=== PATIENT | female | born 1955 | race Caucasian/White ===

== ENCOUNTER 2020-02-01 15:03 | Inpatient (IN) | payer OTHER, SELFPAY ==
[~2020-02-01] VITALS: Ht 157.5 cm; Wt 49.9 kg
[2020-02-01 15:17] VITALS: BP_SYST 146
--- NOTE | 2020-02-01 15:40 | NUR ---
Patient to ER bed 7 to gown for evaluation. Side rails up.
--- NOTE | 2020-02-01 15:45 | NUR ---
Pt bib EMS from [facility] with c/o constipation. Reports no BM x6 days. H/o cancer and chronic pain. V/S stable, pt is afebrile. Currently resting in bed, will continue to monitor.
[2020-02-01] MEDS ORDERED: KETOROLAC TROMETHAMINE 30 MG VIAL IVP ONE (16:15)
--- NOTE | 2020-02-01 16:15 | NUR ---
ER Dr. Wright at bedside examining patient.
--- NOTE | 2020-02-01 16:20 | NUR ---
# 20 gauge angiocath placed to RFA. Use of asceptic technique. Opsite placed over site. Blood return noted. Blood for lab drawn from site. Flushed with 10 cc of normal saline. No evidence of infiltration noted. Patient tolerated well.
[2020-02-01] MEDS ORDERED: KETAMINE 30 MG/3 ML SYRINGE IVP ONE (16:45)
[2020-02-01] MEDS ORDERED: MORPHINE 4 MG/ML INJ. SYRINGE IVP ONE (16:45)
[2020-02-01] MEDS ORDERED: KETOROLAC TROMETHAMINE 30 MG VIAL ONE (16:48)
--- NOTE | 2020-02-01 16:50 | NUR ---
Patient transported to radiology via gurney, accompanied by staff.
[2020-02-01 17:24] LABS: BASOPHILS # (AUTO) 0.1 K/uL (0.0-0.2); BASOPHILS % (AUTO) 0.9 % (0.0-2.0); EOSINOPHILS % (AUTO) 0.3 % (0.0-4.0); HEMATOCRIT 31.5 % (36-48); HEMOGLOBIN 10.4 g/dL (12.0-16.0); LYMPHOCYTES # (AUTO) 1.2 K/uL (1.0-5.5); MEAN CORPUSCULAR HEMOGLOBIN 31 pg (27-31); MEAN CORPUSCULAR HGB CONC 33 % (32-36); MEAN CORPUSCULAR VOLUME 92 fL (79.0-98.0); MONOCYTES # (AUTO) 0.4 K/uL (0.0-1.0); NEUTROPHILS # (AUTO) 6.8 K/uL (1.8-7.7); NEUTROPHILS % (AUTO) 79.8 % (40.0-70.0); PLATELET COUNT (AUTO) 304 K/uL (130-430); RED BLOOD CELL COUNT(AUTO) 3.42 MIL/uL (4.2-6.2); RED CELL DISTRIBUTION WIDTH 17.1 % (9.0-15.0); WHITE BLOOD COUNT (AUTO) 8.6 K/uL (4.8-10.8)
[2020-02-01 17:40] LABS: CALCIUM 11.1 mg/dL (8.4-11.0); CREATININE 0.64 mg/dL (0.55-1.30); POTASSIUM 3.6 mmol/L (3.5-5.1)
[2020-02-01 17:41] LABS: ALBUMIN 2.4 g/dL (3.4-4.8); TOTAL BILIRUBIN 2.3 mg/dL (0.0-1.0)
[2020-02-01] MEDS ORDERED: DULO60CA41 PO (17:44)
[2020-02-01] MEDS ORDERED: LOSA100T3 PO (17:44)
[2020-02-01] MEDS ORDERED: SENN8.6T19 PO (17:44)
[2020-02-01] MEDS ORDERED: EXEM25TA5 PO (17:44)
[2020-02-01] MEDS ORDERED: NEU300 PO (17:44)
[2020-02-01] MEDS ORDERED: HYDR4TAB57 PO (17:44)
--- NOTE | 2020-02-01 17:46 | NUR ---
Med rec and belongings list completed.
--- NOTE | 2020-02-01 17:47 | NUR ---
Admit orders received from Dr. Sidhu, pt to go to med-surg. Called in-patient charge to request bed, she's not available and they will have her call me back.
[2020-02-01] MEDS ORDERED: MORPHINE 2 MG/ML INJ. SYRINGE IVP ONE (18:00)
--- NOTE | 2020-02-01 18:04 | NUR ---
Nasal swab obtained to r/o Covid and MRSA as per MD orders. Sample sent to lab. Pt tolerated well.
[2020-02-01 18:08] LABS: BILIRUBIN,URINE 1+ (NEGATIVE); BLOOD, URINE 3+ (NEGATIVE); CLARITY/URINE CLOUDY (CLEAR); COLOR,URINE YELLOW (YELLOW); GLUCOSE,URINE NEGATIVE (NEGATIVE); KETONES,URINE 2+ (NEGATIVE); LEUKOCYTE ESTERASE ,URINE 3+ (NEGATIVE); NITRITE, URINE NEGATIVE (NEGATIVE); PH,URINE 6.5 (5.0-8.0); PROTEIN URINE TRACE (NEGATIVE)
--- NOTE | 2020-02-01 18:10 | NUR ---
Pt refuses replacement of urinary catheter. States it was just changed 2 weeks ago. aware
[2020-02-01] MEDS ORDERED: MORPHINE 2 MG/ML INJ. SYRINGE ONE (18:50)
[2020-02-01] MEDS ORDERED: cefTRIAXone 1 GM IVPB PREMIX 50 ML IV ONE ×2 (19:00→19:49)
[2020-02-01] MEDS: CALCITONIN SALMON,SYNTHETIC 3.7 ML SPRAY.PUMP NS SCH (19:00)
[2020-02-01] MEDS ORDERED: NALOXONE HCL 0.4 MG/ML AMP (NARCAN) IVP PRN (19:00)
[2020-02-01] MEDS ORDERED: BISACODYL 10 MG/SUPPOSITORY RC PRN (19:00)
[2020-02-01] MEDS ORDERED: MILK OF MAGNESIA 30 ML UDC PO PRN (19:00)
[2020-02-01] MEDS ORDERED: ACETAMINOPHEN 325 MG TABLET PO PRN (19:00)
[2020-02-01] MEDS ORDERED: POLYETHYLENE GLYCOL 3350, 17 GM/ POWD.PACK PO ONE (19:00)
[2020-02-01 19:05] VITALS: BP_SYST 146
--- NOTE | 2020-02-01 19:16 | NUR ---
Care of patient endorsed to AYLEEN Guillory. Pt currently resting in bed, no distress noted.
--- NOTE | 2020-02-01 19:17 | NUR ---
ASSUMED CARE OF PT WHO IS RESTING QUIETLY AWAITING TRANSFER TO UNIT.
[2020-02-01] MEDS: NACL 0.9% 1,000 ML IV SCH ×2 (19:36→21:20)
--- NOTE | 2020-02-01 19:50 | NUR ---
Patient will be admitted to care of dr. Rubio. Admitted to med surg unit. Will go to room 134B. Belongings list completed. Complete and up to date summary report printed.
--- NOTE | 2020-02-01 20:10 | NUR ---
ADMISSION: The patient, LIAM ZURITA, 65 y/o, F admitted by DYLON DARLING MD,with the diagnosis of Abdominal Pain , to room 134 B .PRIMARY RN IS AWARE.
[2020-02-01 20:25] VITALS: BP_SYST 154
[2020-02-01 20:29] LABS: RBC,URINE 50-80 /HPF (0-3)
[2020-02-01 20:30] LABS: BACTERIA,URINE FEW /HPF (None Seen); WBC,URINE 80-100 /HPF (0-3)
[2020-02-01 20:31] LABS: TRICHOMONAS,URINE None Seen /HPF (None Seen); YEAST,URINE Few /HPF (None Seen)
[2020-02-01] MEDS: HYDROmorphone 2 MG/ML VIAL IVP PRN (20:59)
--- NOTE | 2020-02-01 20:59 | NUR ---
PAIN MGT PATIENT MEDICATED WITH DILAUDID 2 MG ORDERED FOR C/O ABDOMINAL PAIN 01/06. POSSIBLE SIDE EFFECTS DISCUSSED WITH PATIENT. VITAL SIGNS STABLE.
[2020-02-01] MEDS ORDERED: SENNOSIDES 8.6 MG TABLET PO SCH (21:00)
[2020-02-01] MEDS: GABAPENTIN 300 MG CAPSULE PO SCH (21:19)
--- NOTE | 2020-02-01 21:20 | NUR ---
MED PASS PATIENT DUE MEDICATIONS GIVEN AND TOLERATED. BED IN LOWEST LOCKED POSITION WITH ALARM ON. CALL LIGHT WITH IN EASY REACH.
--- NOTE | 2020-02-01 22:32 | NUR ---
CALLED : DR DARLING CALLED , NOTIFIED HER THAT PT CAME WITH CLEMENS CATH , IT WAS NOT CHANGED IN ER , PT HAS IT FOR 3 WEEKS , REQUESTED TO GET NEW ORDER TO CHANGE CLEMENS CATH. MD ORDERED TO CHANGE CATH AFTER 5 AM , MD STATED INCASE IF UNABLE TO REINSERT ITS MORE CONVENIENT TO GET A URO CONSULT .
[2020-02-02 00:52] VITALS: BP_SYST 152
[2020-02-02] MEDS: HYDROmorphone 2 MG/ML VIAL IVP PRN ×3 (01:40→21:12)
--- NOTE | 2020-02-02 01:40 | NUR ---
PAIN MGT PATIENT MEDICATED WITH DILAUDID 2 MG FOR C/O ABDOMINAL AND RECTAL PAIN 01/06. VITAL SIGNS STABLE. CALL LIGHT WITH IN EASY REACH. BED ALARM ON.
--- NOTE | 2020-02-02 03:41 | NUR ---
ROUNDS PATIENT RESTING IN BED. NO DISTRESS NOTED. IVF INFUSING.
[2020-02-02] MEDS: NACL 0.9% 1,000 ML IV SCH ×3 (05:01→21:09)
--- NOTE | 2020-02-02 05:45 | NUR ---
CLEMENS CLEMENS CATHETER CHANGED ARABIC 16 ORDERED.
--- NOTE | 2020-02-02 06:42 | NUR ---
CLOSING NOTES PATIENT NEEDS ATTENDED. NO CHANGED IN PATIENT CONDITION. BED IN LOWEST LOCKED POSITION WITH ALARM ON. CALL LIGHT WITH IN REACH.
[2020-02-02 07:21] LABS: BASOPHILS % (AUTO) 0.7 % (0.0-2.0); EOSINOPHILS % (AUTO) 0.4 % (0.0-4.0); HEMATOCRIT 27.3 % (36-48); LYMPHOCYTES # (AUTO) 1.2 K/uL (1.0-5.5); LYMPHOCYTES % (AUTO) 18.3 % (20.5-51.5); MEAN CORPUSCULAR HEMOGLOBIN 31 pg (27-31); MEAN CORPUSCULAR HGB CONC 33 % (32-36); MEAN CORPUSCULAR VOLUME 93 fL (79.0-98.0); MONOCYTES # (AUTO) 0.4 K/uL (0.0-1.0); MONOCYTES % (AUTO) 6.6 % (1.7-9.3); NEUTROPHILS # (AUTO) 4.8 K/uL (1.8-7.7); PLATELET COUNT (AUTO) 229 K/uL (130-430); RED BLOOD CELL COUNT(AUTO) 2.96 MIL/uL (4.2-6.2); RED CELL DISTRIBUTION WIDTH 16.9 % (9.0-15.0); WHITE BLOOD COUNT (AUTO) 6.5 K/uL (4.8-10.8)
--- NOTE | 2020-02-02 07:31 | NUR ---
CONSULTATION: REASON FOR CONSULT: ABDOMINAL PAIN CONSULTING PHYSICIAN: LAWANDA FAUSTIN MD ORDERED BY: DYLON DARLING SPOKE WITH MAGEN FROM ANSWERING SERVICES [phone]
--- NOTE | 2020-02-02 07:35 | NUR ---
AM ROUNDS: PATIENT RECEIVED ON SEMI AMATO'S POSITION.AWAKE ALERT AND ORIENTED X4. IV FLUIDS RUNNING AT RIGHT FOREARM INTACT.CLEMENS DRAINING TO YELLOW URINE.CALL LIGHT WITH IN REACH. BED LOCKED AT LOWEST POSITION.BED ALARM ON. BILATERAL SCD'S ON LE. SAFETY MEASURES RENDERED. STABLE.
[2020-02-02] MEDS ORDERED: ZOLPIDEM TARTRATE 5 MG TABLET PO PRN (07:45)
[2020-02-02 07:54] LABS: CALCIUM 9.9 mg/dL (8.4-11.0); CREATININE 0.6 mg/dL (0.55-1.30); POTASSIUM 3.6 mmol/L (3.5-5.1)
[2020-02-02] MEDS ORDERED: GOLYTELY / COLYTE SOLUTION 4 LITERS PO ONE (08:00)
[2020-02-02] MEDS ORDERED: SODIUM PHOSPHATE,MONO-DIBASIC 133 ML ENEMA RC ONE (08:00)
[2020-02-02 08:13] VITALS: BP_SYST 137
[2020-02-02 08:48] LABS: BILIRUBIN,URINE 1+ (NEGATIVE); BLOOD, URINE 3+ (NEGATIVE); CLARITY/URINE CLEAR (CLEAR); COLOR,URINE YELLOW (YELLOW); GLUCOSE,URINE NEGATIVE (NEGATIVE); KETONES,URINE 1+ (NEGATIVE); LEUKOCYTE ESTERASE ,URINE 3+ (NEGATIVE); NITRITE, URINE NEGATIVE (NEGATIVE); PH,URINE 6.5 (5.0-8.0); PROTEIN URINE NEGATIVE (NEGATIVE)
[2020-02-02 08:58] LABS: BACTERIA,URINE FEW /HPF (None Seen); MUCUS,URINE 1+ /LPF (None Seen); WBC,URINE 20-50 /HPF (0-3)
[2020-02-02] MEDS ORDERED: DULoxetine HCL 30 MG CAPSULE.DR (CYMBALTA) PO SCH (09:00)
[2020-02-02] MEDS ORDERED: LACTULOSE 20 GM/30 ML UDC PO SCH (09:15)
[2020-02-02] MEDS ORDERED: MINERAL OIL 30 ML UDC PO SCH (09:15)
[2020-02-02] MEDS: POLYETHYLENE GLYCOL 3350, 17 GM/ POWD.PACK PO SCH (09:27)
[2020-02-02] MEDS: LOSARTAN POTASSIUM 50 MG TABLET (COZAAR) PO SCH (09:27)
[2020-02-02] MEDS: GABAPENTIN 300 MG CAPSULE PO SCH ×3 (09:27→21:09)
[2020-02-02] MEDS ORDERED: MINERAL OIL 30 ML UDC PO ONE (09:30)
[2020-02-02] MEDS ORDERED: LACTULOSE 20 GM/30 ML UDC PO ONE (09:30)
[2020-02-02] MEDS: CALCITONIN SALMON,SYNTHETIC 3.7 ML SPRAY.PUMP NS SCH (09:41)
--- NOTE | 2020-02-02 09:41 | NUR ---
Digital Disimpaction Notes: Digital disimpaction rendered for impacted stools via rectal as ordered.Obtained soft form brownish stools and hard stools in large amount.Fleet enema rendered after digital disimpaction.
[2020-02-02] MEDS ORDERED: SENNOSIDES 8.6 MG TABLET PO ONE (10:00)
[2020-02-02] MEDS ORDERED: DULoxetine HCL 30 MG CAPSULE.DR (CYMBALTA) PO ONE (10:00)
--- NOTE | 2020-02-02 10:03 | NUR ---
Nutrition Update Alphonso Scale 17 noted. Pt admitted for abd pain. Diet: clear liquid BMI: 20.3 kg/m2 RD to follow per nutrition care standards.
[2020-02-02 12:53] VITALS: BP_SYST 146
[2020-02-02] MEDS: HYDROmorphone 1 MG INJ. 1 MG/ML AMPUL IVP PRN ×2 (13:07→18:31)
--- NOTE | 2020-02-02 13:30 | NUR ---
WOUND EVALUATION: Late note for 02/02/2020 at 1330 secondary to patient care. Wound Consult received from Dr. Mercado. Thank you, Dr. Mercado, for the consult. Patient received in a [place] Bed with an Isoflex MAUREEN mattress with low air loss therapy, awake, alert, oriented. Patient is able to turn independently. Alphonso Score is a 17. Past Medical History: Breast Cancer with metastasis, Chronic Obstructive Pulmonary Disease, Right Femur surgery, Diabetes Mellitus, Hypertension. Recent Labs: WBC 6.5, RBC 2.96, hemoglobin 9.0, hematocrit 27.3, sodium 133, chloride 96, glucose 68, AST 75, alkaline phosphatase 701, serum total protein 5.6, albumin 2.0. Microbiology: Blood culture results x2 in progress. MRSA screen results in progress. Urine culture results in progress. Intrinsic factors that delay wound healing: Breast Cancer with metastasis, Chronic Obstructive Pulmonary Disease, Diabetes Mellitus. Extrinsic factors that delay wound healing: Decreased mobility. Wound Assessment: 1. Right Anterior Thigh: Wound over scar tissue, present on admission. This is an old surgical site. with a large area of scar tissue throughout thigh. Wound bed has 80% pink tissue, 20% yellow tissue. No odor, scant yellow drainage. Periwound intact. Surrounding tissue has scar tissue. Wound measures 0.9 cm x 0.4 cm x 0.3 cm. 2. Right Anterior Thigh, inferior to site 1: Wound over scar tissue, present on admission. This is an old surgical site. with a large area of scar tissue throughout thigh. Wound bed has 90% yellow tissue, 10% brown tissue. No odor, scant yellow drainage. Periwound intact. Surrounding tissue has scar tissue. Wound measures 0.9 cm x 0.7 cm x 0.3 cm. 3. Right Anterior Thigh, inferior to site 2: Wound over scar tissue, present on admission. This is an old surgical site. with a large area of scar tissue throughout thigh. Wound bed has 90% yellow tissue, 10% pink tissue. No odor, scant yellow drainage. Periwound intact. Surrounding tissue has scar tissue. Wound measures 2.4 cm x 1.2 cm. Recommend: Cleanse wounds with normal saline. Apply moisture barrier cream to stephanie-wounds. Apply Venelex ointment to wound beds. Cover with foam dressings. Perform wound care daily, and as needed for dressing soiling or dislodgement. 4. Right Lateral Thigh: Chronic wound over scar tissue, present on admission. This is an old surgical site. with a large area of scar tissue throughout thigh. Wound bed has 100% brown scab. No odor, no drainage. Dry, stable. Periwound intact. Surrounding tissue has scar tissue. Wound measures 0.6 cm x 0.6 cm. Recommend: Cover site with foam dressing. Perform site care daily, and as needed for dressing soiling or dislodgement. Also recommend: Encourage and assist patient as needed with repositioning every 2 hours with pillow support and off-load pressure areas with pillows for pressure re-distribution. Offload, elevate and float bilateral heels with pillows. Perform skin care and monitor skin integrity Q shift. Use moisture barrier cream on buttocks and other moisture susceptible areas QID and as needed for soiling. Maintain patient on a low air-loss mattress.
--- NOTE | 2020-02-02 13:40 | NUR ---
WOUND CARE: CLEANSE NS RIGHT THIGH,PAT DRY.HYDROGEL TO WOUND BED AND COVERED WITH OPTI FOAM DRESSING X2. APPLY Z-GUARD TO REDNESS AREA.
[2020-02-02] MEDS: LACTULOSE 20 GM/30 ML UDC PO SCH ×2 (16:11→21:13)
--- NOTE | 2020-02-02 16:34 | NUR ---
loose stools: has large amount of loose light brown stools.z-guard applied to buttocks area.
[2020-02-02 16:37] VITALS: BP_SYST 154
--- NOTE | 2020-02-02 17:08 | NUR ---
Mri Result: Mri results relayed to Dr. Dennis with orders advance diet .Cancell Ercp tomorrow and tell nursing supervisor trust accounts. Addendum: 02/02/20 at 1719 by Fide Hughes RN Corrected above notes.Not intended to above patient.
--- NOTE | 2020-02-02 18:35 | NUR ---
Pain Meds: C/o pain and due iv pain meds given per request. No problem.
--- NOTE | 2020-02-02 18:56 | NUR ---
END OF SHIFT: PATIENT RESTING THIS TIME. STILL DRINKING GOLYTELY SLOWLY. CLEMENS IN PLACE.CALL LIGHT WITH IN REACH. BED LOCKED AT LOWEST POSITION. SAFETY MEASURES RENDERED.CONTINUE TO MONITOR.
--- NOTE | 2020-02-02 19:30 | NUR ---
Initial note: Received report from tigist RN. Patient is in bed, resting. No acute distress. Even, nonlabored respirations on room air. IV site is patent and intact. Buenrostro is draining clear, yellow urine to gravity. Bed is locked at lowest position. Side rails up. Bed alarm on. Call light is with patient. Safety and fall precautions in place. Will continue with plan of care.
[2020-02-02 20:00] VITALS: BP_SYST 134
[2020-02-02] MEDS: SENNOSIDES 8.6 MG TABLET PO SCH (21:09)
[2020-02-02] MEDS: MINERAL OIL 30 ML UDC PO SCH (21:09)
--- NOTE | 2020-02-02 21:12 | NUR ---
Pain: Patient complained of 10/10 generalized pain. Dilaudid 2mg IVP indicated. Patient educated on indications and side effects of medication. Patient verbalized understanding. Medication administered per MD order. Patient tolerated well. Will continue to monitor and reassess.
[2020-02-02] MEDS: ZOLPIDEM TARTRATE 5 MG TABLET PO PRN (22:18)
--- NOTE | 2020-02-02 22:18 | NUR ---
Insomnia: Patient complained of insomnia. Ambien 5mg PO indicated. Educated patient on indications and side effects of medications. Patient verbalized understanding. Medication administered per MD order. Patient tolerated well. Will continue to monitor.
[2020-02-03 00:30] VITALS: BP_SYST 146
--- NOTE | 2020-02-03 00:45 | NUR ---
Rounds: Patient is resting in bed. No signs of acute distress. Breathing is even, nonlabored on room air. Call light is with patient. Safety and fall precautions in place. Will continue monitoring.
[2020-02-03] MEDS: HYDROmorphone 2 MG/ML VIAL IVP PRN ×6 (01:04→23:00)
--- NOTE | 2020-02-03 01:04 | NUR ---
Pain: Patient complained of severe back pain. Dilaudid 2mg IVP indicated. Educated patient on indications and side effects of medication. Patient verbalized understanding. Medication administered per MD order. Patient tolerated well. Will continue to monitor and reassess.
--- NOTE | 2020-02-03 03:05 | NUR ---
Rounds: Patient is sleeping in bed. No signs of acute distress. Breathing is even, nonlabored on room air. Call light is with patient. Safety and fall precautions in place. Will continue monitoring.
--- NOTE | 2020-02-03 05:15 | NUR ---
Rounds: Patient is sleeping in bed. Showing no signs of acute distress. Respirations are even, nonlabored on room air. Call light is with patient. Safety and fall precautions in place. Will continue to monitor.
--- NOTE | 2020-02-03 06:31 | NUR ---
Closing note: Patient is in bed, resting. PRN pain medications given at this time. No acute distress. Even, nonlabored respirations on room air. IV site is patent and intact. Buenrostro is draining clear, yellow urine to gravity. All needs met. Bed is locked at lowest position. Side rails up. Bed alarm on. Call light is with patient. Safety and fall precautions in place. Will endorse to tigist RN.
--- NOTE | 2020-02-03 07:55 | NUR ---
Initial note: Patient is awake, alert and oriented, not showing any signs of distress on RA. Iv line is patent and running IV fluids. Patient has torres cath, draining well. Patient denies pain at his time. Patient asks for pain meds around the clock, she was turned and repositioned. I got a full report from the monomer purification operator nursed. Bed is low, locked, 2 side rails are up and call light is within reach.
[2020-02-03 08:00] VITALS: BP_SYST 165
[2020-02-03] MEDS: DULoxetine HCL 30 MG CAPSULE.DR (CYMBALTA) PO SCH (08:50)
[2020-02-03] MEDS: GABAPENTIN 300 MG CAPSULE PO SCH ×3 (08:50→21:09)
[2020-02-03] MEDS: SENNOSIDES 8.6 MG TABLET PO SCH ×2 (08:51→21:09)
[2020-02-03] MEDS: LOSARTAN POTASSIUM 50 MG TABLET (COZAAR) PO SCH (08:52)
[2020-02-03] MEDS: POLYETHYLENE GLYCOL 3350, 17 GM/ POWD.PACK PO SCH ×2 (08:52→21:09)
[2020-02-03] MEDS: CALCITONIN SALMON,SYNTHETIC 3.7 ML SPRAY.PUMP NS SCH (08:52)
[2020-02-03] MEDS: LACTULOSE 20 GM/30 ML UDC PO SCH (08:57)
[2020-02-03] MEDS: MINERAL OIL 30 ML UDC PO SCH (08:57)
[2020-02-03] MEDS ORDERED: POLYETHYLENE GLYCOL 3350, 17 GM/ POWD.PACK PO ONE (09:30)
--- NOTE | 2020-02-03 10:30 | NUR ---
Patient sleeping, not showing any signs of distress at this time. Bed is low, locked, 2 side rails are up and call light is within reach.
[2020-02-03] MEDS ORDERED: BALSAM PERU/CASTOR OIL 60 GM OINT...G. TP ONE (11:00)
[2020-02-03 11:28] VITALS: BP_SYST 143
[2020-02-03] MEDS: NACL 0.9% 1,000 ML IV SCH ×2 (11:58→21:10)
--- NOTE | 2020-02-03 12:50 | NUR ---
Patient sleeping, pain meds are being given around the clock. All needs were met. Bed is low, locked, 2 side rails are up and call light is within reach.
[2020-02-03] MEDS: ALBUTEROL SULFATE 0.083% 2.5 MG/3 ML VIAL.NEB INH PRN ×2 (13:19→21:43)
--- NOTE | 2020-02-03 14:11 | NUR ---
Dietitian Recommendations * Recommend soft (low fiber/bland) diet w/ Ensure Enlive TID (ONS provides 1050 kcal/day, 60 gm protein/day) LP, RD Please refer to Nutrition Assessment for details. Addendum: 02/03/20 at [address] Amended: Links added.
--- NOTE | 2020-02-03 14:30 | NUR ---
Paitnet IV infiltrated, patient is hard stick, I tried 3 times and then i asked powerhouse tender Rebecca to help, we were able to establish a new line after a couple of tried. Patient doing well, all needs were met.
[2020-02-03 15:39] VITALS: BP_SYST 149
--- NOTE | 2020-02-03 16:40 | NUR ---
Paitent sleeping, not showing any signs of distress. Bed is low, locked, 2 side rails are up and call light is within reach.
[2020-02-03 20:00] VITALS: BP_SYST 152
--- NOTE | 2020-02-03 20:00 | NUR ---
INITIAL NOTE AT INITIAL ASSESSMENT, PATIENT IS RESTING IN BED, STABLE, NO SIGNS OF RESPIRATORY DISTRESS. PATIENT VERBALIZES TOLERABLE PAIN. PLAN OF CARE FOR THE EVENING IS COMMUNICATED WITH THE PATIENT. PATIENT DEMONSTRATES CORRECT USAGE OF CALL LIGHT AT THIS TIME. BED IS LOCKED, ALARMED, AND AT THE LOWEST LEVEL. FALL SAFETY EDUCATION PROVIDED. FALL, SAFETY, AND RESPIRATORY PRECAUTIONS WILL BE TAKEN THROUGHOUT THE SHIFT.
--- NOTE | 2020-02-03 20:01 | NUR ---
Closing notes: Patient is awake, alert and oriented, not showing any signs of distress on RA. Iv line is patent and running IV fluids. Patient has torres cath, draining well. Patient denies pain at his time as she was recently given pain meds. Patient asks for pain meds around the clock, she was turned and repositioned. Plan is for her to be possibly DC tomorrow as she is doing better. I will give a full report to the retail shift manager nurse. Bed is low, locked, 2 side rails are up and call light is within reach.
[2020-02-03] MEDS: ZOLPIDEM TARTRATE 5 MG TABLET PO PRN (21:12)
--- NOTE | 2020-02-03 23:55 | NUR ---
PAIN NOTE PATIENT IS COMPLAINING OF PAIN, PRN MEDICATION IS GIVEN AT THIS TIME FOR PATIENTS PAIN COMPLAINT PER MD ORDERS. WILL REASSESS IF PRN MEDICATION GIVEN WAS EFFECTIVE. CALL LIGHT PLACED WITHIN REACH. BED IS LOCKED, ALARMED, AND AT THE LOWEST LEVEL.
[2020-02-04 01:36] VITALS: BP_SYST 136
[2020-02-04] MEDS ORDERED: ONDANSETRON HCL 4 MG/2 ML VIAL IVP ONE (03:15)
[2020-02-04] MEDS: HYDROmorphone 2 MG/ML VIAL IVP PRN ×3 (03:34→11:21)
[2020-02-04] MEDS: NACL 0.9% 1,000 ML IV SCH ×2 (03:36→11:25)
--- NOTE | 2020-02-04 06:10 | NUR ---
CLOSING NOTE PATIENT SLEPT WELL THROUGHOUT THE SHIFT, NO SHORTNESS OF BREATH NOTED. AT THIS TIME, PATIENT IS RESTING IN BED, STABLE, NO SIGNS OF RESPIRATORY DISTRESS. CALL LIGHT IS WITHIN REACH. BED IS LOCKED, ALARMED, AND AT THE LOWEST LEVEL. FALL, SAFETY, AND RESPIRATORY PRECAUTIONS HAVE BEEN TAKEN THROUGHOUT THE SHIFT. WILL CONTINUE TO MONITOR UNTIL SHIFT REPORT IS GIVEN AT BEDSIDE TO AM NURSE.
[2020-02-04 08:00] VITALS: BP_SYST 137
--- NOTE | 2020-02-04 08:00 | NUR ---
PATIENT A/OX4. ON ROOM AIR, VS STABLE. DILAUDID IS GIVEN IVP FOR SEVERE PAIN AT THE LOWER ABDOMEN/PELVIS. PATIENT DEMONSTRATES CORRECT USAGE OF CALL LIGHT AT THIS TIME. CALL LIGHT IN PLACE, BED LOCKED AT THE LOWEST LEVEL. FALL SAFETY EDUCATION PROVIDED. FALL, SAFETY, AND RESPIRATORY PRECAUTIONS WILL BE TAKEN THROUGHOUT THE SHIFT.
[2020-02-04] MEDS: POLYETHYLENE GLYCOL 3350, 17 GM/ POWD.PACK PO SCH ×2 (08:36→20:30)
[2020-02-04] MEDS: GABAPENTIN 300 MG CAPSULE PO SCH ×3 (08:37→20:29)
[2020-02-04] MEDS: LOSARTAN POTASSIUM 50 MG TABLET (COZAAR) PO SCH (08:37)
[2020-02-04] MEDS: DULoxetine HCL 30 MG CAPSULE.DR (CYMBALTA) PO SCH (08:37)
[2020-02-04] MEDS: CALCITONIN SALMON,SYNTHETIC 3.7 ML SPRAY.PUMP NS SCH (08:38)
[2020-02-04] MEDS: SENNOSIDES 8.6 MG TABLET PO SCH ×2 (08:49→20:30)
[2020-02-04] MEDS: BALSAM PERU/CASTOR OIL 60 GM OINT...G. TP SCH (08:49)
[2020-02-04] MEDS ORDERED: MINERAL OIL 30 ML UDC PO SCH (09:00)
--- NOTE | 2020-02-04 11:20 | NUR ---
DILAUDID IVP IS GIVEN FOR SEVERE PAIN AT THE LOWER ABDOMEN.
[2020-02-04 11:32] VITALS: BP_SYST 149
--- NOTE | 2020-02-04 12:10 | NUR ---
DR. JOHNSON ASSESSED PATIENT. WILL REASSESS.
--- NOTE | 2020-02-04 14:30 | NUR ---
PATIENT C/O PAIN, BUT HAS NO PAIN MEDS ON HAND. DR. JOHNSON IS CALLED. HE WILL ALSO BE INFORMED ON KUB RESULTS
--- NOTE | 2020-02-04 15:12 | NUR ---
SNF Availability: [facility] Room 215A (Nurse to call for report) [facility] BLS on will call (Nurse to call for filler picker time) Nicole Knott Production Welding Supervisor [phone]
[2020-02-04] MEDS ORDERED: NALOXONE HCL 0.4 MG/ML AMP (NARCAN) IVP PRN (15:15)
--- NOTE | 2020-02-04 15:15 | NUR ---
HIGH ALERT NOTE: Called Dr. Rubio back at identified within the medical roster to verify physician authenticity for Dilaudid 6mg PO q6h PRN
[2020-02-04 15:37] VITALS: BP_SYST 139
--- NOTE | 2020-02-04 15:41 | NUR ---
Discharge to SNF was held. Swati at [facility] and Eliane at [facility] Medic[facility]1 informed. Nicole Knott Box Toe Maker
[2020-02-04 15:55] VITALS: BP_SYST 139
[2020-02-04] MEDS: HYDROmorphone 2 MG TAB PO PRN (16:14)
--- NOTE | 2020-02-04 17:00 | NUR ---
HIGH ALERT NOTE: Called Dr. Rubio back at identified within the medical roster to verify physician authenticity for Ativan 0.5mg PO PRN Q6h
[2020-02-04] MEDS ORDERED: MINERAL OIL 133 ML ENEMA RC ONE (17:15)
[2020-02-04] MEDS ORDERED: MAGNESIUM CITRATE 300 ML ORAL SOLUTION PO ONE (17:15)
[2020-02-04] MEDS ORDERED: LORazepam 1 MG TABLET PO PRN (18:15)
--- NOTE | 2020-02-04 19:00 | NUR ---
DR. DARLING IS CALLED ABOUT PATIENT'S UNCONTROLLED PAIN. WILL AWAIT FOR CALL BACK.
--- NOTE | 2020-02-04 19:43 | NUR ---
HIGH ALERT NOTE: Called Dr. DARLING back at identified within the medical roster to verify physician authenticity for DILAUDID 2MG IVP ONE TIME
[2020-02-04 19:50] VITALS: BP_SYST 148
--- NOTE | 2020-02-04 19:50 | NUR ---
INITIAL NOTE PATIENT IS STABLE AND LAYING IN BED. NO S/S OF RESPIRATORY DISTRESS NOTED. CALL LIGHT IN REACH. PATIENT SUCCESSFULLY DEMONSTRATES USAGE OF CALL LIGHT. BED IS LOCKED, ALARMED, AND AT THE LOWEST POSITION. FALL, SAFETY, ASPIRATION, AND RESPIRATORY PRECAUTIONS WILL BE IN PLACE THROUGHOUT THE SHIFT. PLAN OF CARE IS DISCUSSED WITH PATIENT.
--- NOTE | 2020-02-04 20:00 | NUR ---
PATIENT HAD A BOWEL MOVEMENT AT THIS TIME. BOWEL MOVEMENT WAS LOOSE AND BROWN.
[2020-02-04] MEDS ORDERED: HYDROmorphone 2 MG/ML VIAL IVP ONE (20:30)
[2020-02-04] MEDS: ALBUTEROL SULFATE 0.083% 2.5 MG/3 ML VIAL.NEB INH PRN (21:11)
[2020-02-04] MEDS: ZOLPIDEM TARTRATE 5 MG TABLET PO PRN (21:25)
[2020-02-04] MEDS: MINERAL OIL 30 ML UDC PO SCH (21:25)
--- NOTE | 2020-02-04 22:00 | NUR ---
PATIENT IS STABLE AND LAYING IN BED DRINKING APPLE JUICE. NO S/S OF RESPIRATORY DISTRESS NOTED. CALL LIGHT IN REACH.
--- NOTE | 2020-02-05 00:18 | NUR ---
SBAR REPORT ENDORSED TO AYLEEN LOPEZ. PATIENT IS STABLE. NO S/S OF RESPIRATORY DISTRESS NOTED. CALL LIGHT IN REACH.
--- NOTE | 2020-02-05 00:20 | NUR ---
Assumed nursing care of pt from nurse Rivas. Pt was received lying in bed sleeping. No respiratory distress noted. Call light is with pt and bed alarm is on. Buenrostro cath to gravity drainage noted with clear yellowish urine.
[2020-02-05 02:18] VITALS: BP_SYST 142
--- NOTE | 2020-02-05 03:25 | NUR ---
RESPIRATORY DISTRESS- COMMUNICATION W/ DR. PHONG DARLING CALLED AT THIS TIME, SHE HAS BEEN MADE AWARE THAT PATIENT IS SUDDENLY HAVING RESPIRATORY DISTRESS. PATIENT HAD CALLED USING CALL LIGHT STATING "I'M HAVING TROUBLE BREATHING" UPON IMMEDIATE ASSESSMENT, PATIENT IS HAVING DYSPNEA AT REST, OXYGEN SATURATION 74%, BLOOD PRESSURE 197/108. SHE WAS PLACED ON NON-REBREATHER AT 15L, AND ABOUT 5-10 MINUTES LATER, PATIENT'S OXYGEN WAS BACK UP TO 100%. PATIENT THEN TITRATED DOWN TO NASAL CANNULA 6L AT 100% PULSE OX, BUT HAVING DYSPNEA AT REST W/ AUDIBLE WHEEZING. PATIENT IS STILL AOX4. DR. DARLING HAS GIVEN ORDERS FOR VARIOUS STAT LAB WORK, INCLUDING ABG, CXR, UPGRADE TO TELEMETRY UNIT WITH CONTINUOUS PULSE OX, AND ONE TIME DOSE OF CARDIZEM 10 MG IVP ONE TIME DOSE FOR NOW. ALL ORDERS READ BACK, VERIFIED, AND ENTERED. DR. DARLING HAS REQUESTED TO CALL HER BACK WITH RESULTS, WILL CALL BACK SOON POSSIBLE. ENDORSED TO PATIENT'S PRIMARY RN. SPECIAL CLASS WELDER AND CHARGE NURSE AWARE OF SITUATION.
--- NOTE | 2020-02-05 03:26 | NUR ---
HIGH ALERT NOTE: Called Dr. Moctezuma back at [phone] identified within the medical roster to verify physician authenticity for medication: Max
[2020-02-05 03:30] VITALS: BP_SYST 197
[2020-02-05] MEDS ORDERED: DILTIAZEM HCL 25 MG/5 ML VIAL IVP ONE (03:30)
--- NOTE | 2020-02-05 03:30 | NUR ---
rt notes 0330 RT got called due to pt having trouble breathing. upon arrival to pt room, pt on NRB 15LPM,100% HR 140's and 100% saturation. noticed increased WOB. switched pt to 2LNC and gave prn breathing tx. post tx, pt stated bx tx helped a bit. Pt had huge BM. ABG was done after bx tx. ABG results reported to AYLEEN murphy.PCO2 62, PO2 292.switched pt back to 0.5L NC saturation 93% pt has COPD. still waiting for DR Sidhu order. pt not in resp distress right now. will continue to monitor pt.
[2020-02-05] MEDS: HYDROmorphone 2 MG TAB PO PRN (03:56)
--- NOTE | 2020-02-05 03:56 | NUR ---
Dilaudid 6mg given po per pt's request for c/o 8/10 pain in her rectum, stomach and low back. Call light is with pt and bed alarm is on. Pt instructed not to get out of bed without calling for assistance and pt verbalized understanding.
--- NOTE | 2020-02-05 04:30 | NUR ---
Awaiting lab results in order to notify Dr. Sidhu. The results are still pending.
[2020-02-05 04:47] LABS: ANION GAP 12 (5-15); CALCIUM 9.8 mg/dL (8.4-11.0); CHLORIDE 104 mmol/L (98-107); GLUCOSE 128 mg/dL (70-99); POTASSIUM 3.2 mmol/L (3.5-5.1); SODIUM SERUM 140 mmol/L (136-145); UREA NITROGEN, BLOOD 6 mg/dL (8-21)
[2020-02-05 04:56] LABS: ALANINE AMINOTRANSFERASE 31 U/L (12-78); ALBUMIN 2.2 g/dL (3.4-4.8); ASPARTATE AMINOTRANSFERASE 90 U/L (10-37); TOTAL BILIRUBIN 0.9 mg/dL (0.0-1.0)
[2020-02-05 04:57] LABS: GFR AFRICAN AMERICAN 108 mL/min (>90)
[2020-02-05 05:00] VITALS: BP_SYST 128
--- NOTE | 2020-02-05 05:00 | NUR ---
Pt is resting quietly in bed. No respiratory distress noted. BP 128/80 and HR 104. Oxygen is on at 0.5L/min per NC and oxygen saturation 95%. Lab results still pending. Call light is with pt and bed alarm is on.
[2020-02-05] MEDS: ALBUTEROL SULFATE 0.083% 2.5 MG/3 ML VIAL.NEB INH PRN ×3 (05:20→21:48)
--- NOTE | 2020-02-05 05:20 | NUR ---
Called Lab for status of CBC results and was informed the blood clotted. Lab indicated the [employer] is on her way to pt's room for a redraw.
--- NOTE | 2020-02-05 05:24 | NUR ---
Results of available tests were read to Dr. Sidhu and new orders received.
[2020-02-05] MEDS ORDERED: POTASSIUM CHLORIDE 20 MEQ TAB.PRT.SR PO ONE (05:30)
--- NOTE | 2020-02-05 05:48 | NUR ---
Pt placed on BIPAP /, rate 16 and FIO2 25% by RT. O2 sat 96%.
--- NOTE | 2020-02-05 05:48 | NUR ---
RT NOTES 0548 DR Sidhu ordered pt to be on bipap per ABG results. Pt on 0.5L NC sat 93%. RT talked to pt about using the machine, pt agreed. RT put pt on bipap with current settings 03/04 16 25% FIO2. pt tolerating bipap well, no distress noted. hr 102, 95% saturation. will placed nose protecta gel. martha murphy aware. will continue to monitor pt. will endorse changes to AM RT.
[2020-02-05] MEDS: MINERAL OIL 30 ML UDC PO SCH ×3 (06:00→22:27)
--- NOTE | 2020-02-05 06:15 | NUR ---
Resting quietly in bed with BIPAP on. No respiratory distress noted. Fall and safety precautions are in place. Will endorse to day shift nurse.
--- NOTE | 2020-02-05 06:35 | NUR ---
TOOK BIPAP OFF AND PLACED ON NC 2LPM DUE TO PT STATED SHE NEEDS BREAK FROM BIPAP. SPO2 96%, HR 97 ON NC 2LPM.
[2020-02-05 06:56] LABS: BASOPHILS # (AUTO) 0.2 K/uL (0.0-0.2); BASOPHILS % (AUTO) 2.3 % (0.0-2.0); EOSINOPHILS # (AUTO) 0.1 K/uL (0.0-0.4); EOSINOPHILS % (AUTO) 0.8 % (0.0-4.0); HEMATOCRIT 25.4 % (36-48); HEMOGLOBIN 8.4 g/dL (12.0-16.0); LYMPHOCYTES # (AUTO) 0.6 K/uL (1.0-5.5); LYMPHOCYTES % (AUTO) 8.2 % (20.5-51.5); MEAN CORPUSCULAR HEMOGLOBIN 31 pg (27-31); MEAN CORPUSCULAR HGB CONC 33 % (32-36); MEAN CORPUSCULAR VOLUME 94 fL (79.0-98.0); MONOCYTES # (AUTO) 0.4 K/uL (0.0-1.0); MONOCYTES % (AUTO) 4.7 % (1.7-9.3); NEUTROPHILS # (AUTO) 6.3 K/uL (1.8-7.7); PLATELET COUNT (AUTO) 202 K/uL (130-430); RED BLOOD CELL COUNT(AUTO) 2.71 MIL/uL (4.2-6.2); RED CELL DISTRIBUTION WIDTH 17.2 % (9.0-15.0); WHITE BLOOD COUNT (AUTO) 7.4 K/uL (4.8-10.8)
[2020-02-05 07:28] LABS: INR 1.1 (0.8-1.2); PROTHROMBIN TIME 10.9 SECS (9.5-12.5)
--- NOTE | 2020-02-05 08:30 | NUR ---
Pt. removed from BiPAP per pt. request No resp distress noted, pt placed on 1lpm AYLEEN PLEITEZ notified.
[2020-02-05] MEDS: POLYETHYLENE GLYCOL 3350, 17 GM/ POWD.PACK PO SCH ×2 (09:00→20:09)
[2020-02-05] MEDS: BALSAM PERU/CASTOR OIL 60 GM OINT...G. TP SCH (10:04)
[2020-02-05] MEDS: GABAPENTIN 300 MG CAPSULE PO SCH ×3 (10:09→20:08)
[2020-02-05] MEDS: DULoxetine HCL 30 MG CAPSULE.DR (CYMBALTA) PO SCH (10:09)
[2020-02-05] MEDS: SENNOSIDES 8.6 MG TABLET PO SCH ×2 (10:10→20:09)
[2020-02-05] MEDS: LOSARTAN POTASSIUM 50 MG TABLET (COZAAR) PO SCH (10:10)
[2020-02-05 12:20] VITALS: BP_SYST 135
[2020-02-05] MEDS ORDERED: FUROSEMIDE 20 MG/2 ML VIAL IVP ONE (14:15)
--- NOTE | 2020-02-05 14:43 | NUR ---
PAGED DR KEVIN JOHNSON SPOKE TP ALICE
[2020-02-05] MEDS ORDERED: NALOXONE HCL 0.4 MG/ML AMP (NARCAN) IVP PRN (15:15)
[2020-02-05] MEDS: HYDROmorphone 1 MG INJ. 1 MG/ML AMPUL IVP PRN ×2 (15:28→20:04)
[2020-02-05 16:15] VITALS: BP_SYST 117
--- NOTE | 2020-02-05 17:21 | NUR ---
0745 first seen, still on bipap , in no distress. ABG done at this time, and PCO2 trending down , compared to ABG done earlier. Discussed with RT, to see whether she can be weaned off the machine. on 1L, sat between 94-95%, eating her breakfast, almost 75%. Declined Miralax, " has had too many stools already," 1500, jittery, sob noted, on room air at this time, " so much in pain, especially on the back, upper hips. DILAUDID 1mg ivp given, advised she can ask for it every 4hrs, if needed. appeared relieved after dilaudid administration. Resting now.
--- NOTE | 2020-02-05 19:30 | NUR ---
OPENING NOTE RECEIVED PATIENT AWAKE AOX4, RESPIRATIONS EVEN AND UNLABORED ON OXYGEN 1LPM VIA NC. PATIENT COMPLAINS OF 10/10 GENERALIZED PAIN, WILL MEDICATE ORDERED. CLEMENS CATHETER IN PLACE DRAINING YELLOW URINE TO GRAVITY. PATIENT REFUSING SCDs AT THIS TIME DESPITE EDUCATION ON BENEFITS OF USE. IV SITE TO RIGHT FOREARM AND RIGHT WRIST INTACT AND FLUSHING WELL WITH NO SIGNS OF INFILTRATION NOTED. SAFETY, FALL, AND ASPIRATION PRECAUTIONS IN PLACE. BED LOCKED IN LOW POSITION, CALL LIGHT IN REACH. BED ALARM ON.
[2020-02-05 20:00] VITALS: BP_SYST 123
--- NOTE | 2020-02-05 20:30 | NUR ---
MEDICATION PASS PATIENT REFUSING SENEKOT AND MIRALAX AT THIS TIME. STATES TOO MANY LOOSE STOOLS TODAY. WILL CONTINUE TO MONITOR.
--- NOTE | 2020-02-05 23:00 | NUR ---
PAIN MEDICATION PAIN COMPLAINING OF PAIN 10/10 STATES CURRENT PAIN MEDICATION DILAUDID 1MG IVP DOES NOT HELP. SPOKE WITH DR DARLING, ORDERS RECEIVED AND CARRIED OUT.
--- NOTE | 2020-02-05 23:00 | NUR ---
HIGH ALERT NOTE: Called Dr. DARLING back at identified within the medical roster to verify physician authenticity.
[2020-02-05] MEDS ORDERED: HYDROmorphone 2 MG/ML VIAL IVP ONE (23:15)
--- NOTE | 2020-02-06 01:00 | NUR ---
RN ROUNDS PATIENT IS HUNGRY, PROVIDED TURKEY SANDWICH AND APPLE JUICE. PATIENT TOLERATED.
[2020-02-06 04:00] VITALS: BP_SYST 116
[2020-02-06] MEDS: HYDROmorphone 1 MG INJ. 1 MG/ML AMPUL IVP PRN ×5 (04:09→21:00)
--- NOTE | 2020-02-06 06:20 | NUR ---
CLOSING NOTE PATIENT AWAKE IN BED, NO SIGNS OF DISTRESS NOTED. RESPITR Addendum: 02/06/20 at 0742 by Estefanía Luna RN RESPIRATIONS EVEN AND UNLABORED ON ROOM AIR. PATIENT STATES SHE DOES NEED OXYGEN AT THIS TIME. CLEMENS CATHETER EMPTIED AND LEFT DRAINING TO GRAVITY. PATIENT CONTINUES TO REFUSE SCDs AT THIS TIME. ALL CARE NEEDS MET THROUGHOUT SHIFT. SAFETY PRECAUTIONS REMAIN IN PLACE. BED LOCKED IN LOW POSITION, CALL LIGHT IN REACH. BED ALARM ON. WILL CONTINUE TO MONITOR UNTIL ENDORSED TO AM NURSE.
[2020-02-06] MEDS: MINERAL OIL 30 ML UDC PO SCH ×2 (06:26→12:39)
--- NOTE | 2020-02-06 07:28 | NUR ---
OPENING NOTE Patient resting in the bed. No acute distress. AAO x 4. Denied of pain at this time. Skin warm and dry to touch. SL intact to right wrist and RFA, no redness, no swelling, patent. Discussed the safety issue, use call light when needs help, and plan of care, verbally understanding. Safety measure maintained. Call light within reached. Bed locked in low position, side rails up, bed alarm on. Will continue to monitor.
[2020-02-06 07:50] VITALS: BP_SYST 131
[2020-02-06] MEDS: DULoxetine HCL 30 MG CAPSULE.DR (CYMBALTA) PO SCH (08:35)
[2020-02-06] MEDS: GABAPENTIN 300 MG CAPSULE PO SCH ×3 (08:35→20:50)
[2020-02-06] MEDS: LOSARTAN POTASSIUM 50 MG TABLET (COZAAR) PO SCH (08:35)
[2020-02-06] MEDS: SENNOSIDES 8.6 MG TABLET PO SCH ×2 (08:35→20:50)
[2020-02-06] MEDS: POLYETHYLENE GLYCOL 3350, 17 GM/ POWD.PACK PO SCH ×2 (08:36→20:50)
[2020-02-06] MEDS: BALSAM PERU/CASTOR OIL 60 GM OINT...G. TP SCH (08:39)
--- NOTE | 2020-02-06 08:44 | NUR ---
DILAUDID GIVEN Patient resting in the bed and c/o back pain 10/06. Dilaudid 1mg IVP given as ordered. No acute distress. Safety measure maintained. Call light within reached. Continue to monitor.
--- NOTE | 2020-02-06 10:50 | NUR ---
ROUND Patient resting in the bed. No acute distress. On O2 1L/min via NC. F/C intact, drain gravity. Safety measure maintained. Call light within reached. Bed locked in low position, side rails up, bed alarm on. Continue to monitor.
[2020-02-06] MEDS: ALBUTEROL SULFATE 0.083% 2.5 MG/3 ML VIAL.NEB INH PRN ×3 (11:12→20:56)
[2020-02-06 12:15] VITALS: BP_SYST 132
--- NOTE | 2020-02-06 12:43 | NUR ---
DILAUDID GIVEN Patient resting in the bed and c/o back pain 10/10. Dilaudid 1mg IVP given as ordered. No acute distress. Safety measure maintained. Call light within reached. Continue to monitor.
--- NOTE | 2020-02-06 13:08 | NUR ---
Nutrition F/U Admitting Diagnosis: Abd pain Medical History Comment: PMH: breast CA w/ mets, COPD, DM, HTN per physician notes Pt also found w/ fecal impaction, metastatic breast CA, COPD per physician notes SARS-CoV-2 Ag (Rapid) Negative 01/31 Subjective Information: Pt seen resting in bed earlier today. She c/o feeling weak. Pt verbalized her food preferences, RD notified [facility] staff. Per EMR review, MD suspects carcinomatosis might be causing the pain. RD reviewed [employer] note on 02/01 which noted chronic wound over scar tissue on R lateral thigh. Pt agreed w/ RD rec to add Alvaro for wound healing. Pt w/ suboptimal PO intake and RD also rec to add Glucerna to which pt declined. Current Diet Order/Nutrition Support: GI Soft diet x 3 days Pertinent Medications: senna, mineral oil, miralax, cymbalta, milk of magnesia, dulcolax Pertinent Labs 02/04 Na 140WNL, K 3.2L, BG 128H, BUN 6L, CRE 0.7WNL Skin Integrity Comment: Alphonso scale: 16; Per [employer] Clerk note 02/01 +Chronic wound over scar tissue to Right Lateral Thigh, Wound over scar tissue to Right anterior thigh. Current % PO Fair (70% of 6 meals recorded) ---improved Estimated Energy Expenditure (kcals/day) 7400-8127 kcal/day (30-35 kcal/kg CBW for CA) Estimated Protein Required (g/day) 60-75 gm/day (1.2-1.5 gm/kg CBW for CA) Estimated Fluid Required (l/day) 1.5-1.8 L/day (1 ml/kcal/day for maintenance) Problem/Etiology/Signs/Symptoms Unintentional wt loss related to lack of appetite a/w chronic Dz as evidenced by pt report and 30# wt loss/21% wt change within past 2 months. (*ongoing) Increased nutritional needs related to metabolic demands as evidenced by estimated nutritional requirements for CA. (*ongoing) Altered nutrition related labs r/t endocrine dysfunction AEB elevated BG and Hx of DM. (*new 02/05) Expected Outcomes/Goals - Monitor appetite, and PO intakes w/ goal of pt meeting at least 50% of estimated nutritional needs, labs trending WNL, normal GI function, and skin integrity/wt maintenance Dietitian Recommendations * Recommend GI Soft CCHO diet w/ Alvaro BID. Follow Up High Risk: F/U in 2-3days
--- NOTE | 2020-02-06 13:16 | NUR ---
Dietitian Recommendations * Recommend GI Soft CCHO diet w/ Alvaro BID. Please see Nutrition F/U note for details. PRIYANK RD
--- NOTE | 2020-02-06 13:51 | NUR ---
CONSULTATION PAGED/CALLED Reason for Consultation: [] METASTATIC BREAST CA Person Who was Notified: [] KARYN Consulting Physician: [] DR RASHAD MARTINEZ Supervisor Paint Department Specialty: [] ONCO/COMPUTER SYSTEMS MANAGER Ordering Physician: [] DR JOHNSON
--- NOTE | 2020-02-06 14:20 | NUR ---
OFFICE OF DR RASHAD MARTINEZ CALLED AND REFUSED THE CONSULT FOR METASTATIC BREAST CA. SHE DOES NOT GO TO OUR HOSPITAL NO MORE.
--- NOTE | 2020-02-06 14:23 | NUR ---
ATTENDING MD DR JOHNSON WAS CALLED, RE: TO INFORM THAT DR RASHAD MARTINEZ DOES NOT HAVE PRIVILEGES TO THIS HOSP.
--- NOTE | 2020-02-06 14:45 | NUR ---
NOTIFY EDILBERTO HERNÁNDEZ REGARDING THE CONSULT OF RASHAD INTERIANO NOT GOING TO [facility].
[2020-02-06 16:38] VITALS: BP_SYST 136
--- NOTE | 2020-02-06 16:56 | NUR ---
DILAUDID GIVEN Patient resting in the bed and c/o back pain 12/07. Dilaudid 1mg IVP given as ordered. No acute distress. Safety measure maintained. Call light within reached. Continue to monitor.
--- NOTE | 2020-02-06 18:40 | NUR ---
CLOSING NOTE Patient resting in the bed. No acute distress. Continue on O2 1L/min via NC. PRN pain med given as needed. Skin warm and dry to touch. SL intact to RFA, no redness, no swelling, patent. All needs met. Safety measure maintained. Call light within reached. Bed locked in low position, side rails up, bed alarm on. Will endorse to night nurse.
[2020-02-06 20:00] VITALS: BP_SYST 128
[2020-02-07 00:50] VITALS: BP_SYST 138
[2020-02-07] MEDS: HYDROmorphone 1 MG INJ. 1 MG/ML AMPUL IVP PRN ×4 (01:02→13:34)
[2020-02-07] MEDS: ALBUTEROL SULFATE 0.083% 2.5 MG/3 ML VIAL.NEB INH PRN ×3 (04:34→16:43)
--- NOTE | 2020-02-07 04:50 | NUR ---
IV ON RIGHT FOREARM 24G DISCONTINUED DUE TO PATIENT COMPLAINING OF PAIN IN SITE, IV CATHETER INTACT, PATIENT TOLERATED IT WELL. NEW IV SITE STARTED ON RIGHT FOREARM 20G, PATENT AND BENIGN, PATIENT TOLERATED IT WELL.
--- NOTE | 2020-02-07 07:32 | NUR ---
OPENING NOTE Patient resting in the bed. No acute distress. On O2 1L/min via NC. Denied of pain at this time. Skin warm and dry to touch. SL intact to RFA, no redness, no swelling, patent. Discussed the safety issue, use call light when needs help, and plan of care, verbally understanding. Safety measure maintained. Call light within reached. Bed locked in low position, side rails up, bed alarm on. Will continue to monitor.
[2020-02-07 07:55] VITALS: BP_SYST 132
--- NOTE | 2020-02-07 09:05 | NUR ---
SEEN AND EXAMINED BY MARCELLA ADAME WITH ORDER RECEIVED.
[2020-02-07] MEDS: MINERAL OIL 30 ML UDC PO SCH (09:28)
[2020-02-07] MEDS: DULoxetine HCL 30 MG CAPSULE.DR (CYMBALTA) PO SCH (09:28)
[2020-02-07] MEDS: SENNOSIDES 8.6 MG TABLET PO SCH (09:29)
[2020-02-07] MEDS: LOSARTAN POTASSIUM 50 MG TABLET (COZAAR) PO SCH (09:29)
[2020-02-07] MEDS: POLYETHYLENE GLYCOL 3350, 17 GM/ POWD.PACK PO SCH (09:29)
[2020-02-07] MEDS: GABAPENTIN 300 MG CAPSULE PO SCH ×2 (09:29→14:59)
[2020-02-07] MEDS: BALSAM PERU/CASTOR OIL 60 GM OINT...G. TP SCH (09:30)
--- NOTE | 2020-02-07 09:32 | NUR ---
DILAUDID GIVEN Patient resting in the bed and c/o back pain 12/07. Dilaudid 1mg IVP given as ordered. No acute distress. Continue on O2 1L/min via NC. Safety measure maintained. Call light within reached. Continue to monitor.
--- NOTE | 2020-02-07 09:52 | NUR ---
PORTABLE X-RAY ABDOMEN DONE AT BEDSIDE.
--- NOTE | 2020-02-07 10:53 | NUR ---
SEEN AND EXAMINED BY EDILBERTO HERNÁNDEZ.
[2020-02-07] MEDS ORDERED: MAGNESIUM CITRATE 300 ML ORAL SOLUTION PO ONE (12:00)
[2020-02-07 13:10] VITALS: BP_SYST 128
--- NOTE | 2020-02-07 13:43 | NUR ---
DILAUDID GIVEN Patient resting in the bed and c/o back pain 10/10. Dilaudid 1mg IVP given as ordered. No acute distress. Continue on O2 1L/min via NC. Safety measure maintained. Call light within reached. Continue to monitor.
[2020-02-07] MEDS ORDERED: LACTULOSE 20 GM/30 ML UDC PO SCH (15:00)
--- NOTE | 2020-02-07 15:13 | NUR ---
REPORT GIVEN TO AYLEEN MADERA FROM TRUONG HUFFMAN.
[2020-02-07 16:00] VITALS: BP_SYST 133
--- NOTE | 2020-02-07 16:16 | NUR ---
CALLED AND RECEIVED CALL BACK FROM EDILBERTO HERNÁNDEZ TO OBTAIN ORDER TO KEEP CLEMENS CATHETER WHEN DISCHARGE.
[2020-02-07 17:36] VITALS: BP_SYST 127
--- NOTE | 2020-02-07 18:38 | NUR ---
PT TRANSFERRED Report given to AYLEEN Gutiérrez at [phone]. Transfer packet with Transfer Orders and Medication Reconciliation form given to EMT with report. Exitcare provided. [facility] ID band removed, replaced with ID band with pt's name and . IV catheter removed, intact and dressing applied, no active bleeding. All belongings sent with patient. Patient left floor via gurney escorted by EMT in no distress.
[2020-02-08] MEDS ORDERED: levoFLOXacin 500 MG TABLET PO SCH (12:00)
== END 2020-02-07 18:38 | DRG 388 ==
LOC: SED 15:03 → SMU 17:46 → STU 02-05 03:33
PROVIDERS: ADMIT Internal Medicine; ATTEND Internal Medicine
PROC: 5A09357 Assistance with Respiratory Ventilation, Less than 24 Consecutive Hours, Continuous Positive Airway Pressure (ICD-10-PCS; principal; 2020-02-05)
PROC: 5A09357 Assistance with Respiratory Ventilation, Less than 24 Consecutive Hours, Continuous Positive Airway Pressure (ICD-10-PCS; 2020-02-05)
DX: K56.41 Fecal impaction (principal); E43 Unspecified severe protein-calorie malnutrition; J96.02 Acute respiratory failure with hypercapnia; J96.01 Acute respiratory failure with hypoxia; F11.20 Opioid dependence, uncomplicated; E87.2 Acidosis; C78.7 Secondary malignant neoplasm of liver and intrahepatic bile duct; C50.919 Malignant neoplasm of unspecified site of unspecified female breast; I10 Essential (primary) hypertension; G89.29 Other chronic pain; J43.9 Emphysema, unspecified; E83.52 Hypercalcemia; T40.2X5A Adverse effect of other opioids, initial encounter; E11.9 Type 2 diabetes mellitus without complications; Z20.828 Contact with and (suspected) exposure to other viral communicable diseases; Z88.8 Allergy status to other drugs, medicaments and biological substances; Z85.3 Personal history of malignant neoplasm of breast; Z68.20 Body mass index [BMI] 20.0-20.9, adult; Z87.891 Personal history of nicotine dependence
CPT/HCPCS: 36415; 36600; 71045; 74018; 80053; 81000-TC; 82803-TC; 83605; 83690-TC; 83880; 84484; 85025; 85379; 85610-TC; 85730-TC; 86920; 87040-TC; 87081; 87086; 93306; 94640; 94660; 94760; 96365; 96375; 99291; G0378; J0696; J1170; J1885; J1940; J2270; J2405; J3490; J7030; J7613

== ENCOUNTER 2020-02-21 14:53 | Inpatient (IN) | payer OTHER, SELFPAY ==
[~2020-02-21] VITALS: Ht 157.5 cm; Wt 43.1 kg
[~2020-02-21 14:53] MED LIST: DULO60CA41 PO; EXEM25TA5 PO; HYDR4TAB57 PO; LOSA100T3 PO; NEU300 PO; SENN8.6T19 PO
[2020-02-21 14:55] VITALS: BP_SYST 144
--- NOTE | 2020-02-21 15:00 | NUR ---
Placed in room 5. Placed on electromechanic, blood pressure machine and pulse oximeter. To gown for exam. Side rails up. Report given to AYLEEN Morelos.
--- NOTE | 2020-02-21 15:10 | NUR ---
Pt brought to ER via ambulance for respiratory distress, pt has hx of CA. Pt reports chronic pain, O2 sat WNL, no distress noted, on 2L via nasal cannula, VSS.
--- NOTE | 2020-02-21 15:20 | NUR ---
ER at bedside examining patient.
[2020-02-21] MEDS ORDERED: FUROSEMIDE 40 MG/4 ML VIAL IVP ONE (15:30)
[2020-02-21] MEDS ORDERED: IPRATROPIUM/ALBUTEROL SULFATE 3 ML AMPUL.NEB (DUONEB) INH ONE (15:30)
[2020-02-21] MEDS ORDERED: methylPREDNISolone SOD SUCC 500 MG/VIAL (Solu-MEDROL) IV ONE (15:30)
[2020-02-21 15:50] LABS: BASOPHILS # (AUTO) 0.1 K/uL (0.0-0.2); BASOPHILS % (AUTO) 1.1 % (0.0-2.0); EOSINOPHILS # (AUTO) 0.1 K/uL (0.0-0.4); EOSINOPHILS % (AUTO) 0.9 % (0.0-4.0); HEMATOCRIT 23.6 % (36-48); HEMOGLOBIN 7.7 g/dL (12.0-16.0); LYMPHOCYTES # (AUTO) 0.9 K/uL (1.0-5.5); LYMPHOCYTES % (AUTO) 15.1 % (20.5-51.5); MEAN CORPUSCULAR HEMOGLOBIN 31 pg (27-31); MEAN CORPUSCULAR HGB CONC 33 % (32-36); MEAN CORPUSCULAR VOLUME 94 fL (79.0-98.0); MONOCYTES # (AUTO) 0.4 K/uL (0.0-1.0); MONOCYTES % (AUTO) 6.9 % (1.7-9.3); NEUTROPHILS # (AUTO) 4.7 K/uL (1.8-7.7); PLATELET COUNT (AUTO) 259 K/uL (130-430); RED BLOOD CELL COUNT(AUTO) 2.51 MIL/uL (4.2-6.2); WHITE BLOOD COUNT (AUTO) 6.2 K/uL (4.8-10.8)
[2020-02-21 16:03] LABS: CHLORIDE 96 mmol/L (98-107); CREATININE 0.74 mg/dL (0.55-1.30); GLUCOSE 99 mg/dL (70-99); POTASSIUM 3.8 mmol/L (3.5-5.1); SODIUM SERUM 135 mmol/L (136-145); UREA NITROGEN, BLOOD 17 mg/dL (8-21)
[2020-02-21 16:23] LABS: C-REACTIVE PROTEIN QUANT 11.5 mg/dL (0-0.5)
[2020-02-21 16:26] LABS: ALANINE AMINOTRANSFERASE 45 U/L (12-78); ASPARTATE AMINOTRANSFERASE 117 U/L (10-37); LACTATE DEHYDROGENASE 199 U/L (81-234); TOTAL BILIRUBIN 3.9 mg/dL (0.0-1.0)
[2020-02-21 16:29] LABS: ANION GAP < 3 (5-15); GFR AFRICAN AMERICAN 102 mL/min (>90)
--- NOTE | 2020-02-21 16:33 | NUR ---
O2 raised to 5L via nasal cannula after patient was desatting at 85%, current sats 98%
[2020-02-21 16:45] LABS: FIBRINOGEN 432 mg/dL (200-400)
[2020-02-21] MEDS ORDERED: KETOROLAC TROMETHAMINE 30 MG VIAL IVP ONE (16:45)
--- NOTE | 2020-02-21 18:19 | NUR ---
Pt asleep in [facility] at this time VSS
[2020-02-21] MEDS ORDERED: IOHEXOL 350 mgI/mL, 150 ML INFUS..BTL IV ONE (18:30)
--- NOTE | 2020-02-21 18:36 | NUR ---
ADMIT NOTE Received pt from ER to the floor with a diagnosis of RESPIRATORY DISTRESS. Admission process initiated. patient oriented to pain management, safety and call light-teach back done.
--- NOTE | 2020-02-21 18:40 | NUR ---
RT NOTES 1840 PT MOVED FROM ER 5 TO MED SURG 116A. TRANSPORT PT ON 2LNC, UPON ARRIVAL SWITCHED PT TO BIPAP WITH CURRENT VENT SETTINGS PER DR JOHNSON, 01/01 BUR 14 40% FIO2. PT SATURATION 96%. WILL CONTINUE TO MONITOR PT. NO DISTRESS AT THIS TIME.
--- NOTE | 2020-02-21 19:04 | NUR ---
Patient will be admitted to care of Joanne. Admitted to Tele unit. Will go to room 116. Belongings list completed. Complete and up to date summary report printed. SBAR report to be given at bedside with opportunity for questions.
[2020-02-21 19:11] VITALS: BP_SYST 146
[2020-02-21 19:15] VITALS: BP_SYST 144
--- NOTE | 2020-02-21 19:30 | NUR ---
ROUNDS PATIENT RESTING COMFORTABLY IN BED, NOT IN DISTRESS, VITALS STABLE. DENIES PAIN AT THIS TIME. ASSESSMENT DONE AND DOCUMENTED. SEE FLOWSHEET. PLAN OF CARE DISCUSSED AND PATIENT VERBALIZED UNDERSTANDING. NEEDS ATTENDED TO. SAFETY AND FALL MEASURES IN PLACED. BED IN LOW AND LOCKED POSITION. CALL LIGHT PLACED WITHIN REACH.
[2020-02-21] MEDS ORDERED: ACETAMINOPHEN 325 MG TABLET PO PRN (20:00)
[2020-02-21] MEDS ORDERED: NALOXONE HCL 0.4 MG/ML AMP (NARCAN) IVP PRN (20:00)
[2020-02-21] MEDS ORDERED: ALBUTEROL SULFATE 0.083% 2.5 MG/3 ML VIAL.NEB INH PRN (20:00)
[2020-02-21] MEDS ORDERED: cefTRIAXone 1 GM VIAL ONE (21:00)
[2020-02-21] MEDS ORDERED: AZITHROMYCIN 500 MG/VIAL (ZITHROMAX) IV ONE (21:01)
[2020-02-21] MEDS: GABAPENTIN 300 MG CAPSULE PO SCH (22:09)
[2020-02-21] MEDS: SENNOSIDES 8.6 MG TABLET PO SCH (22:09)
[2020-02-21] MEDS: MORPHINE 2 MG/ML INJ. SYRINGE IVP PRN (22:21)
[2020-02-21] MEDS: AZITHROMYCIN 500 MG in NS 250 ML IV SCH (23:08)
--- NOTE | 2020-02-22 00:13 | NUR ---
PATIENT RESTING: Patient resting quietly. No acute distress noted. Vital signs within normal range.
[2020-02-22 01:16] VITALS: BP_SYST 123
--- NOTE | 2020-02-22 02:13 | NUR ---
ROUNDS PATIENT ASLEEP, NO SOB NOTED, WILL CONTINUE TO MONITOR.
--- NOTE | 2020-02-22 04:16 | NUR ---
ROUNDS PATIENT SLEEPING, NO SOB NOTED, WILL CONTINUE TO MONITOR.
[2020-02-22 07:12] LABS: BASOPHILS # (AUTO) 0.1 K/uL (0.0-0.2); BASOPHILS % (AUTO) 1.6 % (0.0-2.0); EOSINOPHILS % (AUTO) 0.3 % (0.0-4.0); HEMATOCRIT 24.6 % (36-48); LYMPHOCYTES # (AUTO) 0.9 K/uL (1.0-5.5); MEAN CORPUSCULAR HEMOGLOBIN 30 pg (27-31); MEAN CORPUSCULAR HGB CONC 33 % (32-36); MEAN CORPUSCULAR VOLUME 93 fL (79.0-98.0); MONOCYTES # (AUTO) 0.4 K/uL (0.0-1.0); MONOCYTES % (AUTO) 6.7 % (1.7-9.3); NEUTROPHILS # (AUTO) 4.4 K/uL (1.8-7.7); NEUTROPHILS % (AUTO) 76.4 % (40.0-70.0); PLATELET COUNT (AUTO) 246 K/uL (130-430); RED BLOOD CELL COUNT(AUTO) 2.65 MIL/uL (4.2-6.2); RED CELL DISTRIBUTION WIDTH 17.3 % (9.0-15.0); WHITE BLOOD COUNT (AUTO) 5.7 K/uL (4.8-10.8)
[2020-02-22 07:57] LABS: ALANINE AMINOTRANSFERASE 57 U/L (12-78); ALBUMIN 2.1 g/dL (3.4-4.8); ANION GAP 4 (5-15); ASPARTATE AMINOTRANSFERASE 155 U/L (10-37); CHLORIDE 93 mmol/L (98-107); GLUCOSE 96 mg/dL (70-99); POTASSIUM 3.6 mmol/L (3.5-5.1); SODIUM SERUM 134 mmol/L (136-145); TOTAL BILIRUBIN 3.9 mg/dL (0.0-1.0); UREA NITROGEN, BLOOD 20 mg/dL (8-21)
[2020-02-22 08:04] VITALS: BP_SYST 146
--- NOTE | 2020-02-22 08:05 | NUR ---
am notes pt in bed. a/ox3. denies any pain or sob at this time. vitals stable. safety /fall precautions in place. bed alarm on. call light within reach. poc discussed with pt verbalized understanding. kept comfortable. not in acute distres. no ivsite noted. pt to have mid line as per dr humphreys ordered. will continue to monitor
[2020-02-22 08:13] LABS: CALCIUM 12.9 mg/dL (8.4-11.0); GFR AFRICAN AMERICAN 108 mL/min (>90)
--- NOTE | 2020-02-22 08:53 | NUR ---
Nutrition Update Alphonso scale 14 noted. Pt admitted for Respiratory Distress Diet: Clear Liquid Diet BMI: 17.4 kg/m2 RD to follow per nutrition care standards.
[2020-02-22] MEDS: GABAPENTIN 300 MG CAPSULE PO SCH ×3 (09:31→21:00)
[2020-02-22] MEDS: SENNOSIDES 8.6 MG TABLET PO SCH ×2 (09:31→21:00)
[2020-02-22] MEDS: LOSARTAN POTASSIUM 50 MG TABLET (COZAAR) PO SCH (09:32)
[2020-02-22] MEDS: ENOXAPARIN SODIUM 40 MG/0.4 ML SYRINGE SUBCUT SCH (09:35)
--- NOTE | 2020-02-22 10:30 | NUR ---
MID LINE PLACEMENT MID LINE PLACEMENT DONE BY PICC RN PT TOLERATED WELL. NOT IN ACUTE DISTRESS, SEE BY DR JOHNSNO
[2020-02-22] MEDS ORDERED: DULoxetine HCL 30 MG CAPSULE.DR (CYMBALTA) ONE (10:31)
--- NOTE | 2020-02-22 10:35 | NUR ---
CONSULTATION CALLED REASON FOR CONSULTATION:RESPIRATORY FAILURE WAS CONSULT CALLED?Y PERSON WHO WAS NOTIFIED:'S PAGER PAGED CONSULTING PHYSICIAN:ALEXIS HINOJOSA GM SPECIALTY:PULMONARY GM PHONE NUMBER:[phone] REQUESTING PHYSICIAN:EDILBERTO OVIEDO
[2020-02-22] MEDS: MORPHINE 2 MG/ML INJ. SYRINGE IVP PRN (10:39)
[2020-02-22] MEDS: DULoxetine HCL 30 MG CAPSULE.DR (CYMBALTA) PO SCH (10:43)
--- NOTE | 2020-02-22 11:30 | NUR ---
Transfer to room 123B for PUI/COVID isolation room, nasal swab taken for Covid PCR .
[2020-02-22 11:42] VITALS: BP_SYST 134
--- NOTE | 2020-02-22 12:44 | NUR ---
Patient resting with mild SOB on exertion kept on 2 liters oxygen saturation 98%, Clear liquid serve., safety/fall.aspiation precaution initiated.
[2020-02-22] MEDS ORDERED: FUROSEMIDE 20 MG/2 ML VIAL IVP ONE (13:00)
--- NOTE | 2020-02-22 13:16 | NUR ---
MD KEVIN ELI CALLED AT SPOKE WITH DR.JANDIAL LUCERO RAJNISH CIVIL CLERK.
--- NOTE | 2020-02-22 13:21 | NUR ---
PAGED PAGED EDILBERTO OVIEDO AT [phone] SPOKE WITH LUKAS.
[2020-02-22] MEDS ORDERED: FUROSEMIDE 20 MG/2 ML VIAL ONE (13:26)
--- NOTE | 2020-02-22 14:00 | NUR ---
Complaining of chronic lower back pain 9 vitals sign stable kept on continuos pulse oximeter 97 to 98% , due pain medication given , safety/fall precaution initiated will monitor.
[2020-02-22] MEDS ORDERED: MORPHINE 4 MG/ML INJ. SYRINGE ONE (14:06)
[2020-02-22 14:13] VITALS: BP_SYST 134
[2020-02-22] MEDS: MORPHINE 4 MG/ML INJ. SYRINGE IVP PRN ×3 (14:16→22:30)
[2020-02-22] MEDS: FUROSEMIDE 20 MG/2 ML VIAL IVP SCH (17:33)
[2020-02-22 17:34] VITALS: BP_SYST 141
--- NOTE | 2020-02-22 19:00 | NUR ---
Patient resting no sign of acute respiratory distress after morphine sulfate was given , safety/fall precaution initiated, endorsed to cad programmer.
--- NOTE | 2020-02-22 19:30 | NUR ---
OPENING NOTES: Received report from dayshift nurse. Patient is laying in bed alert and oriented x3. She is c/o back pain and states she wants her pain medication. I informed patient that she received last dose of Morphine at 1807 and the frequency is every 4 hours, she verbalized understanding. Midline noted on JAKE with dry dressing. Ensured all safety precautions. Bed is locked and in the lowest position, call light within reach.
[2020-02-22 20:00] VITALS: BP_SYST 135
[2020-02-22] MEDS: AZITHROMYCIN 500 MG in NS 250 ML IV SCH (20:00)
[2020-02-22] MEDS ORDERED: FUROSEMIDE 20 MG/2 ML VIAL IVP SCH (21:00)
--- NOTE | 2020-02-22 21:00 | NUR ---
PAIN MEDS REQUEST: Patient called nurses station requesting her Mophine. She states it's time to have her meds and wants them one hour early. I reminded patient that she is not due until 2206 and we cannot administer Narcotic medications prior to their scheduled time. She verbalized understanding.
--- NOTE | 2020-02-22 21:00 | NUR ---
MEDICATION ADMINISTRATION: Patient is laying in bed, vital signs are within normal limits. Administered medications as ordered, tolerated well. Will continue to monitor.
[2020-02-23] VITALS: BP_SYST 142
--- NOTE | 2020-02-23 | NUR ---
RN ROUNDS / VITALS: Patient is laying in bed with no s/s of distress or discomfort. She does not appears to be in pain at this time. Vitals are within normal limits. Bed is in the lowest position with alarm on, call light within reach. Will continue to monitor.
--- NOTE | 2020-02-23 05:00 | NUR ---
RN ROUNDS / PAIN MEDICATION: Patient called requesting pain medications. States she is having pain 10/10 on her back and is requesting Morphine. I have educated patient about using relaxation techniques to help with pain but she states nothing else helps. Patient is alert and oriented with no s/s of distress or discomfort. I administered PRN Morphine as ordered, pt tolerated well. Will continue to monitor patient. Bed is in the lowest position with alarm on and call light within reach.
[2020-02-23] MEDS: MORPHINE 4 MG/ML INJ. SYRINGE IVP PRN ×3 (05:01→23:36)
[2020-02-23] MEDS: FUROSEMIDE 20 MG/2 ML VIAL IVP SCH ×2 (06:24→16:31)
--- NOTE | 2020-02-23 06:33 | NUR ---
CLOSING NOTES: Patient is laying in bed with no s/s of distress or discomfort and is currently asleep. BP is 151/75, I administered Lasix as ordered, tolerated well. Patient has midline on JAKE which is patent and intact. She is on 2L O2 via NC tolerating well. All needs were met throughout shift. Ensured safety precautions. Bed is locked and in the lowest position with alarm on, call light within reach. Will endorse care to dayshift nurse.
[2020-02-23 08:00] VITALS: BP_SYST 149
--- NOTE | 2020-02-23 08:00 | NUR ---
NOTE Pt resting in bed with HOB at 45'. Pt's breakfast tray on bedside table across bed. No SOB/resp distress or pain/discomfort noted at this time. Tele unit attached and intact. Pt's Buenrostro catheter intact and draining. IV in JAKE - midline intact and patent. No needs noted at this time. Call light within reach.
[2020-02-23] MEDS: SENNOSIDES 8.6 MG TABLET PO SCH ×2 (09:38→21:00)
[2020-02-23] MEDS: DULoxetine HCL 30 MG CAPSULE.DR (CYMBALTA) PO SCH (09:38)
[2020-02-23] MEDS: GABAPENTIN 300 MG CAPSULE PO SCH ×3 (09:38→21:20)
[2020-02-23] MEDS: LOSARTAN POTASSIUM 50 MG TABLET (COZAAR) PO SCH (09:39)
[2020-02-23] MEDS: ENOXAPARIN SODIUM 40 MG/0.4 ML SYRINGE SUBCUT SCH (09:43)
--- NOTE | 2020-02-23 10:50 | NUR ---
Note Pt resting in bed - denies any needs at this time. Call light within reach. Bed in low position and bed alarm on all shift.
--- NOTE | 2020-02-23 10:50 | NUR ---
Dietitian Recommendations * Recommend mechanical soft diet w/ Ensure Enlive TID (ONS provides 1050 kcal/day, 60 gm protein/day) * Encourage increase PO intakes LP, RD Please refer to Nutrition Assessment for details. Addendum: 02/23/20 at [address] Amended: Links added.
[2020-02-23] MEDS: MORPHINE 2 MG/ML INJ. SYRINGE IVP PRN (11:10)
[2020-02-23 12:00] VITALS: BP_SYST 150
--- NOTE | 2020-02-23 14:00 | NUR ---
Note Pt was sitting up eating her lunch. Pt has had O2 on at 2L/nc all shift, to help with oxygen saturation. Pt has pain in back through out shift, even though Morphine IVP was given q4' as scheduled. Call light within reach.
[2020-02-23 16:00] VITALS: BP_SYST 147
--- NOTE | 2020-02-23 17:15 | NUR ---
Note Pt resting in bed, pain is tolerable at this time. No needs noted at this time. Buenrostro catheter intact and patent at this time. Call light within reach.
--- NOTE | 2020-02-23 18:35 | NUR ---
Note Pt sitting up in bed eating her dinner. No SOB/resp distress or pain/discomfort noted all shift. JAKE midline intact and patent all shift. Pt was checked on q1' and PRN all shift for needs and care. Buenrostro catheter intact and draining. Pt maintained with safety and isolation precautions all shift. Pt's bed in low position and bed alarm on all shift. No needs noted at this time. Call light within reach. Tele unit attached and intact all shift.
--- NOTE | 2020-02-23 19:25 | NUR ---
CHANGE OF SHIFT; endorsed by day shift, no resp. distress. on isolation for Covid. fall risk precaution.
[2020-02-23 20:00] VITALS: BP_SYST 152
--- NOTE | 2020-02-23 20:15 | NUR ---
NOTES: pt. calm , O2 @ 2 liters per nasal cannula. IV site on rt. upper arm with midline catheter. hx of left mastectomy. pt. does no twant to wear gown, only wants a sheet cover. on cardiac cath technician and shows sinus rhythm borderline sinus tach. torres cath to osd. noted rt. thigh /leg with deformity ( old scar wound). some slight swelling on left leg. pt. talks softly and sometimes unable to understand what she is saying. on isolation for Covid. call light within reach.
[2020-02-23] MEDS: AZITHROMYCIN 500 MG in NS 250 ML IV SCH (21:20)
--- NOTE | 2020-02-23 21:30 | NUR ---
NOTES: schedule medication taken fairly, refused senokot. pt. needs attended.
--- NOTE | 2020-02-23 23:36 | NUR ---
NOTES: pt. remains awake, medicated with Morphine IV for generalized pain. repositioned.
[2020-02-24] VITALS: BP_SYST 141
--- NOTE | 2020-02-24 00:30 | NUR ---
NOTES: VS rechecked. pt. awake, forgetful. follows simple command. on fall risk precaution.
--- NOTE | 2020-02-24 02:45 | NUR ---
NOTES: pt. sleeping when checked, no distress.
--- NOTE | 2020-02-24 04:00 | NUR ---
NOTES: complete am care, changed pads, no bm, torres cath intact. IV site flushed, keep O2 @ 2 liters per nasal cannula. continue to monitor.
--- NOTE | 2020-02-24 05:30 | NUR ---
NOTES: pt. medicated with IV Morphine for generalized pain, repositioned. turn to sides.
[2020-02-24] MEDS: MORPHINE 4 MG/ML INJ. SYRINGE IVP PRN ×5 (06:40→20:46)
--- NOTE | 2020-02-24 06:43 | NUR ---
CLOSING NOTES; pt. resting , noted some relief. IV site patent. torres cath intact. fall risk precaution. for further care and assistance. call light within reach. will endorse to incoming shift.
[2020-02-24] MEDS: FUROSEMIDE 20 MG/2 ML VIAL IVP SCH ×2 (07:26→18:10)
[2020-02-24 08:00] VITALS: BP_SYST 142
--- NOTE | 2020-02-24 08:00 | NUR ---
Note Pt assisted in sitting up in bed to eat her breakfast. No SOB/resp distress or severe pain/discomfort noted at this time. Tele unit attached and intact. IV in JAKE - midline, intact and patent. Pt on O2 at 2L/nc. No needs noted at this time. Buenrostro catheter intact and draining. Call light within reach.
[2020-02-24] MEDS: DULoxetine HCL 30 MG CAPSULE.DR (CYMBALTA) PO SCH (08:41)
[2020-02-24] MEDS: LOSARTAN POTASSIUM 50 MG TABLET (COZAAR) PO SCH (08:41)
[2020-02-24] MEDS: SENNOSIDES 8.6 MG TABLET PO SCH ×2 (08:41→20:37)
[2020-02-24] MEDS: GABAPENTIN 300 MG CAPSULE PO SCH ×3 (08:41→20:38)
[2020-02-24] MEDS: ENOXAPARIN SODIUM 40 MG/0.4 ML SYRINGE SUBCUT SCH (08:42)
--- NOTE | 2020-02-24 09:50 | NUR ---
Note Dr Luna ([facility]) was called and informed that pt's COVID PCR was negative. Order to DC isolation and move pt to floor given. Pt's report was given to Talia ABBASI for continuation of care. Pt notified of move from rm 123B to 114B. Pt transferred to room via bed. All belongings (eye glasses and cell phone/outpatient therapist) and IV pole were transferred as well.
--- NOTE | 2020-02-24 10:16 | NUR ---
transferred from Covid floor to this one, when pcr (-). tearful, " so much in pain, on my back". MSO4 4mg ivp given a bit earlier than expected. Pale looking elderly, " felt like crap now, wants to rest.
--- NOTE | 2020-02-24 11:15 | NUR ---
Note Called HCP window caser - [place] for Discharge Planning. Waiting for Dr Luna (pul) to okay discharge pt back to [facility] ([facility]) - nothing faxed at this time to HCP.
[2020-02-24 12:00] VITALS: BP_SYST 122
[2020-02-24 16:00] VITALS: BP_SYST 121
--- NOTE | 2020-02-24 19:30 | NUR ---
OPENING NOTES RECEIVED REPORT FROM DAY SHIFT RN. PT RESTING IN BED, ALERT & ORIENTED X3. BREATHING EVEN AND UNLABORED TO O2 VIA NC AT 2L. NO S/S OF RESPIRATORY DISTRESS NOTED. RIGHT UPPER ARM MIDLINE CLEAN, DRY, AND INTACT. CLEMENS CATHETER INTACT, DRAINING BY GRAVITY. CALL LIGHT WITHIN REACH. SIDE RAILS UP X3. BED ALARM ON, LOCKED IN LOWEST POSITION. SAFETY AND FALL PRECAUTIONS MAINTAINED. WILL CONTINUE TO MONITOR.
[2020-02-24 20:00] VITALS: BP_SYST 118
--- NOTE | 2020-02-24 20:37 | NUR ---
MEDICATION PASS SCHEDULED MEDICATIONS ADMINISTERED ORDERED. DISCUSSED MEDICATIONS ACTION AND POTENTIAL SIDE EFFECTS. PT VERBALIZED UNDERSTANDING. BREATHING EVEN AND UNLABORED TO O2 VIA NC AT 2L. 02 SAT 96%. PT GRACIELA ANY SHORTNESS OF BREATH. CLEMENS CATHETER INTACT, DRAINING BY GRAVITY. CALL LIGHT WITHIN REACH. BED ALARM ON, LOCKED IN LOWEST POSITION. SAFETY AND FALL PRECAUTIONS ARE IN PLACE. WILL CONTINUE TO MONITOR.
[2020-02-24] MEDS: AZITHROMYCIN 500 MG in NS 250 ML IV SCH (21:38)
--- NOTE | 2020-02-24 23:05 | NUR ---
RN ROUNDS PT SLEEPING. CHEST RISE AND FALL SYMMETRICAL. NO S/S OF ACUTE DISTRESS NOTED. PAIN IS CONTROLLED AT THIS TIME. CLEMENS CATHETER INTACT, DRAINING BY GRAVITY. SIDE RAILS UP X3. BED ALARM ON, LOCKED IN LOWEST LEVEL. SAFETY AND FALL PRECAUTIONS MAINTAINED. WILL MONITOR.
[2020-02-25] VITALS: BP_SYST 121
[2020-02-25] MEDS: MORPHINE 4 MG/ML INJ. SYRINGE IVP PRN ×2 (01:17→09:00)
--- NOTE | 2020-02-25 01:17 | NUR ---
MORPHINE/PAIN MEDICATION PT REPORTING GENERALIZED PAIN. ADMINISTERED MORPHINE ORDERED PRN. DISCUSSED MEDICATION ACTIONS AND POTENTIAL SIDE EFFECTS. PT VERBALIZED UNDERSTANDING. BREATHING EVEN AND UNLABORED TO O2 VIA NC AT 2L. CLEMENS CATHETER INTACT, DRAINING BY GRAVITY. CALL LIGHT WITHIN REACH. SIDE RAILS UP X3. SAFETY AND FALL PRECAUTIONS MAINTAINED. WILL CONTINUE TO MONITOR.
--- NOTE | 2020-02-25 03:48 | NUR ---
RN ROUNDS PT SLEEPING. CHEST RISE AND FALL SYMMETRICAL. NO SIGNS OF RESPIRATORY DISTRESS NOTED. CLEMENS CATHETER INTACT, DRAINING BY GRAVITY. SIDE RAILS UP X3. BED ALARM ON, LOCKED IN LOWEST POSITION. CALL LIGHT WITHIN REACH. SAFETY AND FALL PRECAUTIONS MAINTAINED. WILL CONTINUE TO MONITOR.
[2020-02-25] MEDS: FUROSEMIDE 20 MG/2 ML VIAL IVP SCH ×2 (06:03→16:55)
--- NOTE | 2020-02-25 06:51 | NUR ---
CLOSING NOTES PT RESTING IN BED. BREATHING EVEN AND UNLABORED TO O2 VIA NC AT 2L. NO S/S OF RESPIRATORY DISTRESS NOTED. RIGHT UPPER ARM MIDLINE CLEAN, DRY, AND INTACT. CLEMENS CATHETER INTACT, DRAINING BY GRAVITY. CALL LIGHT WITHIN REACH. SIDE RAILS UP X3. BED ALARM ON, LOCKED IN LOWEST POSITION. SAFETY AND FALL PRECAUTIONS MAINTAINED. ALL NEEDS ARE MET THROUGHOUT SHIFT. WILL CONTINUE TO MONITOR UNTIL ENDORSE TO DAY SHIFT RN.
[2020-02-25 08:52] VITALS: BP_SYST 109
[2020-02-25] MEDS: GABAPENTIN 300 MG CAPSULE PO SCH ×2 (09:03→14:37)
[2020-02-25] MEDS: ENOXAPARIN SODIUM 40 MG/0.4 ML SYRINGE SUBCUT SCH (09:04)
[2020-02-25] MEDS: SENNOSIDES 8.6 MG TABLET PO SCH (09:04)
[2020-02-25] MEDS: LOSARTAN POTASSIUM 50 MG TABLET (COZAAR) PO SCH (09:04)
[2020-02-25] MEDS: DULoxetine HCL 30 MG CAPSULE.DR (CYMBALTA) PO SCH (09:09)
[2020-02-25 10:13] LABS: CALCIUM 12.3 mg/dL (8.4-11.0); CREATININE 1.06 mg/dL (0.55-1.30); POTASSIUM 3.8 mmol/L (3.5-5.1)
[2020-02-25 12:00] VITALS: BP_SYST 117
--- NOTE | 2020-02-25 14:17 | NUR ---
Pt may dc back to [facility]. Please call [phone] for report. Arranged for 4pm p/u via BLS Transportation with [facility] Auth#[id number]. Please call [phone] if needed. RN to inform pt and family.
[2020-02-25] MEDS: MORPHINE 2 MG/ML INJ. SYRINGE IVP PRN (14:38)
--- NOTE | 2020-02-25 14:49 | NUR ---
NOK Called Hardik Curiel, name listed in the NOK and person to notify at [phone] to notify him of patient transferring back to [facility]. Patient Jennyfer Curiel answered the phone call. I asked the patient if she have Hardik"s number, patient stated, Hardik doesn't want to be involved. Pt stated that facilities planner and nurses always notify her when she is being discharge to the care home
[2020-02-25 15:35] VITALS: BP_SYST 129
[2020-02-25 16:00] VITALS: BP_SYST 125
--- NOTE | 2020-02-25 16:13 | NUR ---
alert, oriented, needs encouragement to eat food, and drink juices, appetite remains from fair to poor continues to ask for pain meds, MSO4 2mg or 4mg ivp. Last dose of 2mg given at 1430 this evening, for pain on the scale of 7/10 scallop shucker , covering for the attending discharged the patient back to [facility], report given to Sisi. Patient will be going to Rm #[id number] A, in light of the continuation of abx, ROCEPHIN and AZITHROMYCIN ivpb x 5 more days, the nurse requested JAKE Midline remains Patient's torres remains, also Will be picked up at 1700 by [facility], [phone]
--- NOTE | 2020-02-25 17:04 | NUR ---
picked up by the ambulance, left the floor at 1710, alert, oriented, and wide awake. No sob noted, denied dyspnea, on 2liter NC on the way out
== END 2020-02-25 17:10 | DRG 291 ==
LOC: SED 14:53 → STU 18:01
PROVIDERS: ADMIT Internal Medicine Hospice and Palliative Medicine; ATTEND Internal Medicine Hospice and Palliative Medicine
PROC: 5A09357 Assistance with Respiratory Ventilation, Less than 24 Consecutive Hours, Continuous Positive Airway Pressure (ICD-10-PCS; 2020-02-21)
PROC: 05HY33Z Insertion of Infusion Device into Upper Vein, Percutaneous Approach (ICD-10-PCS; principal; 2020-02-22)
PROC: B54MZZA Ultrasonography of Right Upper Extremity Veins, Guidance (ICD-10-PCS; 2020-02-22)
DX: I11.0 Hypertensive heart disease with heart failure (principal); J96.22 Acute and chronic respiratory failure with hypercapnia; E43 Unspecified severe protein-calorie malnutrition; J96.21 Acute and chronic respiratory failure with hypoxia; E87.1 Hypo-osmolality and hyponatremia; C79.9 Secondary malignant neoplasm of unspecified site; C79.51 Secondary malignant neoplasm of bone; C78.7 Secondary malignant neoplasm of liver and intrahepatic bile duct; J84.9 Interstitial pulmonary disease, unspecified; R17 Unspecified jaundice; Z68.1 Body mass index [BMI] 19.9 or less, adult; I50.23 Acute on chronic systolic (congestive) heart failure; C50.919 Malignant neoplasm of unspecified site of unspecified female breast; E11.9 Type 2 diabetes mellitus without complications; D64.9 Anemia, unspecified; E78.5 Hyperlipidemia, unspecified; Z20.828 Contact with and (suspected) exposure to other viral communicable diseases; G89.29 Other chronic pain; J44.9 Chronic obstructive pulmonary disease, unspecified; Z87.891 Personal history of nicotine dependence; Z88.8 Allergy status to other drugs, medicaments and biological substances; Z79.899 Other long term (current) drug therapy
CPT/HCPCS: 36415; 36600; 71045; 80048; 80053; 82728; 82803-TC; 83615-TC; 83880; 84484; 85025; 85379; 85384-TC; 86140; 87081; 87086; 93005; 94660; 94760; 96374; 96375; 99291; G0378; J0456; J0696; J1650; J1885; J1940; J2270; J7050; J7060; Q9967; U0003